=== PATIENT | male | born 1970 | race Hispanic/Latino ===

== ENCOUNTER → 2019-01-03 | Day surgery (SDC) | payer OTHER ==
[2019-01-02 14:04] VITALS: BMI 34.9
--- NOTE | 2019-01-02 20:35 | HP ---
HISTORY OF PRESENT ILLNESS: This is a 48-year-old male who comes in for EGD and colonoscopy. The patient had been having rectal bleeding off and on for the last several weeks. The bleeding is painless. At times, he also has some dark blood in stool. The patient has acid reflux, but under control. No abdominal pain. No nausea or vomiting. The patient comes in for colonoscopy and EGD because of GI bleeding and also some mention of dark blood in the stool. PAST MEDICAL HISTORY: 1. Obesity. 2. Hypertension. 3. Hyperlipidemia. 4. Diabetes mellitus. SOCIAL HISTORY: The patient does not smoke or drink alcohol socially. PHYSICAL EXAMINATION: VITAL SIGNS: Pulse is 70, blood pressure 130/80. Conjunctivae clear. CARDIOVASCULAR SYSTEM: First and second heart sounds were heard. LUNGS: Clear to auscultation. ABDOMEN: Soft. No organomegaly. No tenderness. No masses. EXTREMITIES: Reveal no edema. ADMITTING DIAGNOSES: A 48-year-old male with anemia, gastrointestinal bleed. PLAN: EGD and colonoscopy. Job ID: [id number]
[~2019-01-03] MED LIST: Lidocaine 1% PF 5 ML VIAL ONE; PROPOFOL 200 MG/20 ML VIAL ONE
--- NOTE | 2019-01-03 16:48 | OP ---
DATE OF PROCEDURE: 01/03/2019 OPERATIVE PROCEDURE: Colonoscopy. PREOPERATIVE DIAGNOSES: A 48-year-old male with hematochezia and anemia. The patient underwent colonoscopy. POSTOPERATIVE DIAGNOSES: 1. Hemorrhoids. 2. Diffuse colonic diverticular disease all the way to cecum. However, the diverticulosis mostly severe over the left colon. 3. Retained fecal material with solid stools in the rectum and left colon. 4. He also has dark brownish liquid throughout the colon. DESCRIPTION OF PROCEDURE: The patient was placed on his left lateral position and was given sedation by Anesthesia. The rectal exam was done. The scope was advanced into the rectum. No lesions felt on rectal exam. A Pentax video colonoscope was introduced into the rectum and advanced all the way into the cecum. The exam was difficult because of the fact that he has some solid stools in the rectum and also in the left colon. They also has dark brownish liquid. Water was irrigated and washed out. The appendiceal orifice, ileocecal valve, and cecum with no pathology. The patient had minimal diverticular disease over the right colon. The hepatic flexure, no pathology. Transverse colon, splenic flexure, descending colon, there are scattered diverticula. The sigmoid colon shows severe diverticular disease. Retroflexion of scope in the rectum shows hemorrhoids. Job ID: [id number]
--- NOTE | 2019-01-03 16:54 | OP ---
DATE OF PROCEDURE: 01/03/2019 OPERATIVE PROCEDURE: Esophagogastroduodenoscopy with biopsy. PREOPERATIVE DIAGNOSIS: 1. Anemia. 2. Dyspepsia. POSTOPERATIVE DIAGNOSES: 1. Normal esophagus. 2. Small ulcer over the gastric antrum. 3. Small ulcer in the duodenal bulb. DESCRIPTION OF PROCEDURE: The patient was placed on his left lateral position and was given sedation by Anesthesia. A Pentax video gastroscope under direct vision passed down the oropharynx through the GE junction into the stomach and subsequently into the descending duodenum. The vocal cords appeared very healthy. The esophagus appeared normal. The GE junction, no pathology. Retroflexion failed to show pathology in the fundus or cardia. The gastric body, no pathology, over the gastric antrum, close to the pyloric opening, he was found to have a shallow ulceration. The duodenal bulb again shows small ulceration. The descending duodenum, no pathology. Biopsy from the gastric antrum and gastric body. The stomach decompressed and the scope was removed. DISCHARGE PLANNING: This is a 48-year-old male, who came for EGD because of dyspepsia, anemia, and history of hematochezia. He also has history of passing dark stools. The EGD showed ulceration of the gastric antrum and also in the duodenum. The colonoscopy showed diffuse colonic diverticular disease, hemorrhoids. He has some solid stool in the colon. DISCHARGE RECOMMENDATIONS: 1. Omeprazole 40 once a day. 2. High-fiber diet and Metamucil. 3. To come back to clinic in 2 weeks. Job ID: [id number]
== END ==
LOC: SDC 10:06
PROVIDERS: ATTEND Internal Medicine Gastroenterology
PROC: 0DB68ZX Excision of Stomach, Via Natural or Artificial Opening Endoscopic, Diagnostic (ICD-10-PCS; principal; 2019-01-03)
PROC: 0DJD8ZZ Inspection of Lower Intestinal Tract, Via Natural or Artificial Opening Endoscopic (ICD-10-PCS; principal; 2019-01-03)
DX: K57.31 Diverticulosis of large intestine without perforation or abscess with bleeding (principal); K29.50 Unspecified chronic gastritis without bleeding; B96.81 Helicobacter pylori [H. pylori] as the cause of diseases classified elsewhere; K25.9 Gastric ulcer, unspecified as acute or chronic, without hemorrhage or perforation; K26.9 Duodenal ulcer, unspecified as acute or chronic, without hemorrhage or perforation; K64.9 Unspecified hemorrhoids; D64.9 Anemia, unspecified; I10 Essential (primary) hypertension; E78.5 Hyperlipidemia, unspecified; E11.9 Type 2 diabetes mellitus without complications; E66.9 Obesity, unspecified; Z68.35 Body mass index [BMI] 35.0-35.9, adult; Z79.84 Long term (current) use of oral hypoglycemic drugs; Z79.899 Other long term (current) drug therapy
CPT/HCPCS: 88305; 88312; J2001; J2704

== ENCOUNTER 2019-08-11 00:55 | Emergency (ER) | payer OTHER ==
[2019-08-11 01:54] LABS: #Eosinphils 0.1 thou/uL (0.0-0.7); #Lymphocytes 1.7 thou/uL (1.20-3.40); #Monocytes 1.1 thou/uL (0.11-0.59); #Neutrophils 13.9 thou/uL (1.40-6.50); %Basophils 0.3 % (0.0-1.0); %Eosinophils 0.4 % (0.0-10.0); %Lymphocytes 10.2 % (21.0-51.0); %Monocytes 6.3 % (0.0-10.0); %Neutrophils 82.9 % (42.0-75.0); Hemoglobin 17.2 g/dL (14.0-18.0); Mean Corpuscular HGB CONC 34.3 g/dL (32.0-36.0); Mean Corpuscular Hemoglobin 29.9 pg (27.0-31.0); Mean Corpuscular Volume 87.1 fL (78.0-98.0); Mean Platelet Volume 8.7 fL (7.4-10.4); Platelet Count 242 thou/uL (130-400); RBC Distribution Width 12.7 % (11.5-14.5); Red Blood Cell (RBC) Count 5.74 mill/uL (4.70-6.10); White Blood Cell (WBC) Count 16.7 thou/uL (4.8-10.8)
[2019-08-11 02:15] LABS: ALT (SGPT) 21 U/L (8-55); AST (SGOT) 15 U/L (5-34); Albumin 4.2 g/dL (3.5-5.0); Alkaline Phosphatase 82 U/L (40-150); Anion Gap 18 mmol/L (10-20); BUN (Urea Nitrogen) 12 mg/dL (8.9-20.6); Calc. Creatinine Clearance 0 mL/min (70-130); Calcium 9.8 mg/dL (7.8-10.44); Carbon Dioxide 22 mmol/L (22-29); Chloride 98 mmol/L (98-107); Estimated GFR-MDRD Greater than 90; Globulin 3.5 g/dL (2.4-3.5); Glucose 171 mg/dL (70-105); Lipase 8 U/L (8-78); Potassium 3.8 mmol/L (3.5-5.1); Protein, Total 7.7 g/dL (6.0-8.3); Sodium 134 mmol/L (136-145)
[2019-08-11] MEDS ORDERED: Ketorolac Tromethamine 30 MG/ML VIAL ONE (03:06)
[2019-08-11] MEDS ORDERED: Morphine 4 MG/ML VIAL ONE (03:07)
--- NOTE | 2019-08-11 07:38 | CT ---
"PRELIMINARY REPORT" PRELIMINARY REPORT/[facility]/EMERGENCY AFTER HOURS PROCEDURE: EXAM: CT Abdomen and Pelvis With Contrast EXAM DATE/TIME: 08/11/2019 2:53 AM CLINICAL HISTORY: 49 years old, male; Patient HX: This is a 49 yo male with a pmh of HTN, hld, and dm2 who presents to the ED with a cc of abdominal pain. He states the pain started Sunday and is associated with constipation. He denies blood in his stool or dark tarry stools. He states that he takes metamusal, m ilk of magnesia with little improvement of his symptoms. 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 He denies previous surgeries. He states that he had something similar 20 years ago TECHNIQUE: Imaging protocol: Computed tomography of the abdomen and pelvis with intravenous contrast. COMPARISON: No relevant prior studies available. FINDINGS: Lungs: There is linear atelectasis at the left lung base. Liver: There are no focal liver lesions identified. Gallbladder and bile ducts: The gallbladder is normal. There is no evidence of biliary ductal dilatio n. Pancreas: The pancreas appears normal. No ductal dilatation. Spleen: The spleen is normal. Adrenals: The adrenal glands are normal. Kidneys and ureters: There is a simple cyst in the right kidney. The left kidney is normal. Stomach and bowel: The stomach is normal. The duodenum is unremarkable. There is thickening and infla mmatory stranding involving the sigmoid colon in the setting of moderate diverticulosis suggestive of acute diverticulitis. Appendix: A normal appendix is identified. Intraperitoneal space: Unremarkable. No free air. No significant fluid collection. Vasculature: Unremarkable. No abdominal aortic aneurysm. Lymph nodes: Unremarkable. No enlarged lymph nodes. Bladder: The bladder is normal. Reproductive: The prostate gland and seminal vesicles are normal. Bones/joints: Unremarkable. No acute fracture. Soft tissues: Unremarkable. IMPRESSION: Moderate acute diverticulitis. No abscess. Thank you for allowing us to participate in the care of your patient. Dictated and Authenticated by: Crispin Askew MD 08/11/2019 3:18 AM Central Time ([place] & [place]) FINAL REPORT: CT ABDOMEN AND PELVIS WITH IV CONTRAST: DATE: 08/11/2019. TIME: Performed on an emergency basis at 0254 hours. HISTORY: Abdominal pain. FINDINGS: Agree with the preliminary report by Dr. Askew from [facility]. Sigmoid diverticulitis. No ev idence of abscess. Duodenal diverticulum and other incidental-type findings. Transcribed Date/Time: 08/14/2019 3:56 PM
[2019-08-11] MEDS ORDERED: ISOVUE-370 76%-LOCM 1 ML ONE (13:10)
== END 2019-08-11 03:45 | disposition home or self-care (01) ==
LOC: ERS 00:55
DX: K57.32 Diverticulitis of large intestine without perforation or abscess without bleeding (principal); I10 Essential (primary) hypertension; E11.9 Type 2 diabetes mellitus without complications
CPT/HCPCS: 36415; 74177; 80053; 83690; 85025; 96361; 96374; 96375; J1885; J2270; Q9966